=== PATIENT | female | born 1965 | race African-American/Black ===

== ENCOUNTER → 2016-10-27 | Outpatient (CLI) | payer OTHER ==
--- NOTE | 2016-10-27 17:00 | WOMENS IMAGING REPORT ---
EXAM DESCRIPTION: BILAT SCREENING MAMMO W/CAD COMPLETED DATE/TIME: 10/27/2016 3:18 pm REASON FOR STUDY: ROUTINE SCREENING; Z12.31 Z12.31 ENCNTR SCREEN MAMMOGRAM FOR MALIGNANT NEOPLASM O F YUE COMPARISON: 01/23/2013 TECHNIQUE: Standard craniocaudal and mediolateral oblique views of each breast recorded using digita l acquisition. Additional "push-back" craniocaudal and mediolateral oblique images acquired. LIMITATIONS: None. FINDINGS: IMPLANTS: Bilateral subpectoral implants. Findings present which are benign by mammographic criteria. No suspicious masses, calcifications or architectural distortion. Stereotactic biopsy clip left breast Read with the assistance of CAD. .[facility] - R2 Cenova Version 1.3 .[facility] - R2 Cenova Version 1.3 .[facility] - R2 Cenova Version 2.4 .[facility] [place] R2 Cenova Version 2.4 .[facility] - R2 Bank Accountant Version 9.2 Benign mammographic findings may include one or more of the following: Smooth masses, popcorn/rim/co arse calcifications, asymmetries, post-procedure changes, and lesions with long-standing stability. IMPRESSION: BENIGN MAMMOGRAPHIC FINDINGS. BIRADS 2 BREAST DENSITY: c. The breasts are heterogeneously dense, which may obscure small masses. BIRAD: 2 BENIGN FINDING(S) RECOMMENDATION: ROUTINE SCREENING Please consider bilateral screening tomosynthesis in October 2017 COMMENT: The patient has been notified of the results by letter per [place] requirements. Additional no tification policies are in place for contacting patient with suspicious or incomplete findings. Quality ID #[id number]: The [employer] recommends an annual screening mammogram for women aged 40 years or over. This facility utilizes a reminder system to ensure that all patients receive reminder letters, and/or direct phone calls for appointments. This includes reminders for routine scr eening mammograms, diagnostic mammograms, or other Breast Imaging Interventions when appropriate. Th is patient will be placed in the appropriate reminder system. The [employer] ([employer]) has developed recommendations for screening MRI of the breast s in certain patient populations, to be used in conjunction with mammography. Breast MRI surveillanc e may be appropriate for women with more than 20% lifetime risk of developing breast cancer as deter mined by genetic testing, significant family history of the disease, or history of mantle radiation f or Hodgkins Disease. ACR Practice Guidelines 2008. TECHNICAL DOCUMENTATION: FINDING NUMBER: (1) ASSESSMENT: (1) JOB ID: [id number] [employer]- All Rights Reserved
== END ==
LOC: WI 14:19
PROVIDERS: ATTEND Physician Assistant
DX: Z12.31 Encounter for screening mammogram for malignant neoplasm of breast (principal); Z98.82 Breast implant status
CPT/HCPCS: 77067; G0202

== ENCOUNTER → 2016-11-10 | Outpatient (CLI) | payer OTHER ==
[2016-11-10 18:16] LABS: CHLAM PCR NOT DETECTED (NOT DETECT)
== END ==
LOC: LAB 15:23
PROVIDERS: ATTEND Nurse Practitioner Acute Care
DX: N89.8 Other specified noninflammatory disorders of vagina (principal)
CPT/HCPCS: 87210; 87491; 87591

== ENCOUNTER 2016-11-24 08:19 | Day surgery (SDC) | payer OTHER ==
--- NOTE | 2016-11-22 08:43 | HISTORY AND PHYSICAL E ---
History and Physical NAME: SHIRLEY JOHNSON : 1965 AGE: 51Y ADMITTED: 11/24/2016 ROOM: CHIEF COMPLAINT: Constipation, colon screening. REFERRING: Khang Burr, for constipation, colon screening. SOCIAL HISTORY: . Does not smoke. Drinks rarely. PAST SURGICAL HISTORY: 1. section x2. 2 Breast augmentation x2. REVIEW OF SYSTEMS: HEAD, EYES, EARS, NOSE, THROAT: Eyeglasses. RESPIRATORY: Negative. CARDIAC: Negative. ENDOCRINE: Negative. GI: Constipation, colon screening. NEURO/PSYCH: Negative. FAMILY HISTORY: Father had heart disease. Mom is alive, hypertensive. PHYSICAL EXAMINATION: GENERAL: 51, weight 192, blood pressure 130/80, pulse 60, respirations 18, temp is 98. HEENT: Normal. NECK: Supple. LUNGS: Clear. ABDOMEN: Soft. NEUROLOGIC: Negative. CONCLUSION: Colon screening, constipation. PLAN: Colonoscopy scheduled for the month of November. MEDICATIONS: 1. Multivitamin. 2. Ibuprofen. 3. Vitamin D. DICTATING PHYSICIAN: KAYLA PADRON M.D. [id number] PHY#: [id number] ID: [id number] JOB#: [id number] ACCT: [id number] cc:KAYLA PADRON M.D. >
[2016-11-24] MEDS ORDERED: ONDANSETRON HCL INJ/PF 4 MG/2 ML SDV ONE (08:40)
[2016-11-24] MEDS ORDERED: LIDOCAINE 2% JELLY 30 ML TUBE ONE (08:40)
[2016-11-24] MEDS ORDERED: NALOXONE HCL INJ/PF 0.4 MG/1 ML SDV ONE (08:40)
[2016-11-24] MEDS ORDERED: GLYCOPYRROLATE INJ 0.4 MG/2 ML VIAL ONE (08:40)
[2016-11-24] MEDS ORDERED: FLUMAZENIL INJ 0.5 MG/5 ML VIAL ONE (08:41)
[2016-11-24] MEDS ORDERED: GLUCAGON,HUMAN RECOMB 1 MG INJ ONE (08:41)
[2016-11-24] MEDS ORDERED: EPINEPHRINE INJ 1 MG/10 ML DISP.SYRIN ONE (08:41)
[2016-11-24] MEDS: MIDAZOLAM 2 MG/2 ML INJ ONE ×2 (09:12→09:20)
[2016-11-24] MEDS: FENTANYL CITRATE INJ/PF 100 MCG/2 ML AMPUL ONE ×2 (09:14→09:25)
[2016-11-24 10:52] LABS: ABSOLUTE EOSINOPHILS # (AUTO) 0.1 10^3/uL (0.0-0.6); ABSOLUTE LYMPHOCYTES (AUTO) 1.9 10^3/uL (0.5-4.7); ABSOLUTE MONOCYTES (AUTO) 0.5 10^3/uL (0.1-1.4); ABSOLUTE NEUT (AUTO) 3.5 10^3/uL (1.7-8.2); BASOPHILS % (AUTO) 0.4 % (0-2); EOSINOPHILS % (AUTO) 0.9 % (0-6); HEMATOCRIT 38.3 % (36.0-47.0); HEMOGLOBIN 13.3 g/dL (12.0-15.5); HGB HCT DIFFERENCE 1.6; LYMPHOCYTES % (AUTO) 31.6 % (13-45); MEAN CORPUSCULAR HEMOGLOBIN 28.1 pg (27.0-33.4); MEAN CORPUSCULAR HGB CONC 34.6 g/dL (32.0-36.0); MEAN CORPUSCULAR VOLUME 81 fl (80-97); MONOCYTES % (AUTO) 8.1 % (3-13); RED BLOOD COUNT 4.72 10^6/uL (3.72-5.28); RED CELL DISTRIBUTION WIDTH 14.7 % (11.5-14.0); WHITE BLOOD COUNT 5.9 10^3/uL (4.0-10.5)
[2016-11-24 10:58] VITALS: BP 101/73
--- NOTE | 2016-11-25 20:25 | DISCHARGE SUMMARY E ---
Discharge Summary NAME: SHIRLEY JOHNSON : 1965 AGE: 51Y ADMITTED: 11/24/2016 DISCHARGED: 11/24/2016 PROCEDURE: Colonoscopy, biopsy. HISTORY: A 51-year-old female underwent colon screening today that shows a difficult colonoscopy secondary to scarring from x2, redundant sigmoid descending colon, adhesions. Sigmoid descending colon diverticulosis, small polyp in the cecum removed by biopsy. PLAN: Awaiting biopsy results. Consider followup colonoscopy 2 years. Pending biopsy results. Baseline CBC. Full liquid diet today and tomorrow, then soft, low-residue diet for 3 days. DICTATING PHYSICIAN: KAYLA PADRON M.D. [id number] PHY#: [id number] ID: [id number] JOB#: [id number] ACCT: [id number] cc:[facility] KAYLA PADRON M.D. >
--- NOTE | 2016-11-25 20:37 | OPERATIVE REPORT E ---
Operative Report NAME: SHIRLEY JOHNSON : 1965 AGE: 51Y DATE OF SURGERY: 11/24/2016 ROOM: PREOPERATIVE DIAGNOSIS: COLON SCREENING. PATIENT DOES HAVE A HISTORY OF X2. POSTOPERATIVE DIAGNOSES: 1. DIVERTICULOSIS, SIGMOID DESCENDING COLON. 2. A SESSILE 3 MM POLYP IN THE CECUM ADJACENT TO THE ORIFICE OF THE APPENDIX. A 3 MM POLYP (BENIGN) REMOVED BY 2 BIOPSIES. DIFFICULT TO BIOPSY. PATIENT DOES HAVE SCARRING AND SOME TORTUOSITY IN HER SIGMOID COLON 3. THERE WAS AN ISOLATED DIVERTICULUM IN THE CECUM ADJACENT TO THE POLYP. 4. PATIENT STATUS POST X2. 5. DIFFICULT COLONOSCOPY; NO EVIDENCE OF MALIGNANCY. SURGEON: KAYLA PADRON M.D. ANESTHESIA: Versed 3, fentanyl 100. TISSUE REMOVED OR ALTERED: Biopsy, polyp (cecum). PROCEDURE: RECTAL EXAM: Normal. SIGMOID: Diverticulosis. DESCENDING COLON: Diverticulosis. TRANSVERSE COLON: Normal. ASCENDING COLON: Normal. CECUM: Shows 1 diverticula and a sessile 3 mm polyp (removed by biopsy). PLAN: 1. Awaiting biopsy results. 2. Full liquid diet today and tomorrow, and then soft low-residual diet for 3 days. 3. Hold aspirin and nonsteroidal. 4. Baseline CBC. Patient to see us in the office in the next few days. DICTATING PHYSICIAN: KAYLA PADRON M.D. [id number] PHY#: [id number] ID: [id number] JOB#: [id number] ACCT: [id number] cc:[facility] KAYLA PADRON M.D. >
== END 2016-11-24 11:00 | disposition home or self-care (01) ==
LOC: END 08:19
PROVIDERS: ATTEND Specialist
PROC: 0DBH8ZX Excision of Cecum, Via Natural or Artificial Opening Endoscopic, Diagnostic (ICD-10-PCS; principal; 2016-11-24 09:00)
DX: Z12.11 Encounter for screening for malignant neoplasm of colon (principal); D12.0 Benign neoplasm of cecum; K57.30 Diverticulosis of large intestine without perforation or abscess without bleeding; Z79.1 Long term (current) use of non-steroidal anti-inflammatories (NSAID)
CPT/HCPCS: 45380; 36415; 82378; 85025; 88305 ×2; J2250; J3010; J2405; J0171; J1610; J2310; J3490

== ENCOUNTER → 2018-08-14 | Outpatient (CLI) | payer OTHER ==
--- NOTE | 2018-08-14 19:19 | RADIOLOGY REPORT (SQ) ---
EXAM DESCRIPTION: FOOT LEFT COMPLETE COMPLETED DATE/TIME: 08/14/2018 7:08 pm REASON FOR STUDY: S99.912A UNSPECIFIED INJURY OF LEFT ANKLE, INITIAL ENCOUNTER S99.912A UNSPECIFIED INJURY OF LEFT ANKLE, INITIAL ENCOUNTER COMPARISON: None. NUMBER OF VIEWS: Three views. TECHNIQUE: AP, lateral and oblique radiographic images acquired of the left foot. LIMITATIONS: None. FINDINGS: MINERALIZATION: Normal. BONES: No fracture. Small calcaneal spurs are present. JOINTS: No effusions. SOFT TISSUES: No soft tissue swelling. No foreign body. OTHER: No other significant finding. IMPRESSION: Calcaneal spurs. No acute osseous abnormality. TECHNICAL DOCUMENTATION: JOB ID: [id number] [employer]- All Rights Reserved Reading location - IP/workstation name: [email or web address]
== END ==
LOC: RAD 18:48
PROVIDERS: ATTEND Nurse Practitioner Acute Care
DX: S99.912A Unspecified injury of left ankle, initial encounter (principal); X58.XXXA Exposure to other specified factors, initial encounter; M77.32 Calcaneal spur, left foot